=== PATIENT | female | born 1945 | race African-American/Black ===

== ENCOUNTER 2018-08-09 06:56 | Inpatient (IN) | payer MEDICARE, OTHER ==
[2018-08-04 10:49] VITALS: BMI 42.7
[2018-08-09] MEDS ORDERED: ceFAZolin SODIUM 1 GM VIAL ONE ×2 (07:09→10:29)
[2018-08-09] MEDS ORDERED: VANCOMYCIN 1,000 MG VIAL (RESTRICTED TO ID ONLY) ONE (07:09)
[2018-08-09] MEDS ORDERED: GABAPENTIN 300 MG CAPSULE (FP) PO ONE (07:11)
[2018-08-09] MEDS ORDERED: CEFAZOLIN 2 GM in DEXTROSE 5%-WATER - 50 ML IVPB ONE (07:11)
[2018-08-09] MEDS ORDERED: oxyCODONE HCL 10 MG SUSTAINED ACTING TABLET PO ONE (07:11)
[2018-08-09] MEDS ORDERED: CELECOXIB 200 MG CAPSULE PO ONE (07:11)
[2018-08-09] MEDS ORDERED: TRANEXAMIC ACID 1000 MG/10 ML VIAL IVPUSH ONE (07:11)
--- NOTE | 2018-08-09 07:58 | HP ---
[facility] - Chief Complaint Chief Complaint: right knee pain - Past Medical History Allergies/Adverse Reactions: Allergies Allergy/AdvReac Type Severity Reaction Status Date / Time No Known Allergies Allergy Verified 07/26/18 09:44 - Current Medications Current Medications: Home Medications Medication Instructions Recorded Albuterol 0.083% Nebulizer Shirley 1 amp NEB ASDIR PRN 08/04/18 [Ventolin 0.083% Nebulizer Soln -] Albuterol Sulfate [Albuterol 1 puff IH ASDIR PRN 08/04/18 Sulfate Hfa] Budesonide/Formeterol Fumarate 1 inh PO DAILY PRN 08/04/18 [SYMBICORT 160/4.5mcg -] Ezetimibe 10 mg PO DAILY 08/04/18 Losartan Potassium 100 mg PO DAILY 08/04/18 Naloxegol Oxalate [Movantik] 12.5 mg PO DAILY 08/04/18 Oxycodone HCl/Acetaminophen 1 each PO TID 08/04/18 [Endocet 10-325 mg Tablet] Pravastatin Sodium [Pravachol] 40 mg PO DAILY 08/04/18 Aspirin [Adult Aspirin] 243 mg PO DAILY 08/09/18 Naproxen Sodium [Aleve] 220 mg PO ASDIR PRN 08/09/18 Satellite Physical Exam - Physical Examination Vital Signs: Vital Signs Period Temp Pulse Resp BP Sys/Baker Pulse Ox Last 24 Hr 97.5 F 82 18 148/96 General Appearance: Well Nourished, Well Developed, Alert & Oriented x3 ENT: Clear Lung: Normal air movement Heart: Regular rate & rhythm Extremities: Other (right knee- +swelling, + ttp, decr rom, nvi xrays show grade tricompartmental djd) Neurological: Intact, Alert, Oriented Satellite Impression/Plan - Impression/Plan Impression: right knee djd Operative Procedure: right victroino tkr Date to be Performed: 08/09/18
[2018-08-09] MEDS ORDERED: BUPIVACAINE LIPOSOME/PF (EXPAREL) 266 MG/20 ML VIAL ONE (08:37)
[2018-08-09] MEDS ORDERED: MIDAZOLAM HCL 2 MG/2 ML SINGLE DOSE VIAL ONE (08:37)
[2018-08-09] MEDS ORDERED: SODIUM CHLORIDE 0.9% P/F 10 ML VIAL IJ ONE (08:38)
[2018-08-09] MEDS ORDERED: PROPOFOL 20 ML ONE (09:00)
[2018-08-09] MEDS ORDERED: BUPIVACAINE HCL/PF 0.5% (5MG/ML) 10 ML VIAL ONE (09:03)
[2018-08-09] MEDS ORDERED: PATIENT'S OWN MEDICATION (NON-FORMULARY) (Losartan Potassium [Losartan Potassium] 100 MG) PO SCH (10:00)
[2018-08-09] MEDS ORDERED: ALBUTEROL SO4 8 GM HFA INHALER IH PRN (10:00)
[2018-08-09] MEDS ORDERED: PATIENT'S OWN MEDICATION (NON-FORMULARY) (Pravastatin Sodium [Pravachol] 40 MG) PO SCH (10:00)
[2018-08-09] MEDS ORDERED: ALBUTEROL SO4 0.083% IH SOL 2.5 MG/3 ML VIAL.NEB. NEB PRN (10:00)
[2018-08-09] MEDS ORDERED: MAGNESIUM HYDROX 2400MG/30ML ORAL SUSPENSION 30 ML CUP PO PRN (10:02)
[2018-08-09] MEDS ORDERED: MAG HYDROX/AL HYDROX/SIMETH 30 ML UNIT-DOSE CUP PO PRN (10:02)
[2018-08-09] MEDS ORDERED: ONDANSETRON 4 MG/2 ML VIAL IVPUSH PRN (10:02)
[2018-08-09] MEDS ORDERED: LACTATED RINGERS SOLUTION 1,000 ML IV SCH (10:15)
[2018-08-09] MEDS ORDERED: ROCURONIUM BROMIDE 50 MG/5 ML VIAL ONE (10:16)
[2018-08-09] MEDS ORDERED: LIDOCAINE HCL/PF 2% SDV 5ML VIAL ONE (10:19)
[2018-08-09] MEDS ORDERED: LABETALOL HCL 5 MG/1 ML (100MG/20 ML VIAL) ONE (10:55)
[2018-08-09] MEDS ORDERED: VANCOMYCIN 1,000 MG VIAL (RESTRICTED TO ID ONLY) IVPB ONE (11:49)
[2018-08-09] MEDS ORDERED: GLYCOPYRROLATE 0.2 MG/1 ML VIAL ONE (11:58)
[2018-08-09] MEDS ORDERED: NEOSTIGMINE METHYLSULFATE 0.5 MG/ML - 10 ML MDV ONE (11:58)
--- NOTE | 2018-08-09 12:23 | OP ---
Operative Note - Note: Operative Date: 08/09/18 (rashaun) Pre-Operative Diagnosis: right knee djd Operation: right victorino tkr Post-Operative Diagnosis: Same as Pre-op Surgeon: Tirso Flores [employer] Operator: Dario Aguilar Anesthesiologist/INSURANCE HEALTHCARE CONSULTANT: Jasper Prater Anesthesia: General, Local Specimens Removed: bone fragments Estimated Blood Loss (mls): 200 Operative Report Dictated: Yes
[2018-08-09] MEDS ORDERED: oxyCODONE HCL 5 MG TABLET PO PRN (12:28)
[2018-08-09] MEDS ORDERED: ONDANSETRON 4 MG/2 ML VIAL ONE (13:04)
[2018-08-09] MEDS: ACETAMINOPHEN 325 MG TABLET (FP) PO SCH ×2 (13:20→21:28)
[2018-08-09] MEDS ORDERED: oxyCODONE HCL 5 MG TABLET ONE (13:35)
[2018-08-09] MEDS: CEFAZOLIN 2 GM/D5W 2 GM/50 ML ML IVPB SCH (17:56)
[2018-08-09] MEDS: oxyCODONE HCL 5 MG TABLET PO PRN (19:06)
--- NOTE | 2018-08-09 19:12 | SPEC ---
DATE OF OPERATION: 08/09/2018 PREOPERATIVE DIAGNOSIS: Degenerative joint disease, right knee. POSTOPERATIVE DIAGNOSIS: Degenerative joint disease, right knee. PROCEDURE: Right total knee replacement with robotic-assisted navigation (Makoplasty). SURGICAL ATTENDING: Tirso Flores M.D. FAST FOOD SERVER: Nabil Banks ANESTHESIA: Regional and attempted spinal, but conversion to general. CLOSURE: A Triathlon cemented knee system with a 3 femur, 4 tibia, 9 TS polyethylene, a 32 patella, number 1 Vicryl fascia, 0 and 2-0 subcutaneous, 3-0 Monocryl subcuticular with skin glue for skin, 4-0 undyed Vicryl for pin sites. ESTIMATED BLOOD LOSS: Approximately 100 mL. COMPLICATIONS: None. CONDITION: To recovery room in stable condition. DESCRIPTION OF OPERATIVE PROCEDURE: Patient was taken to the operating room on August 09, 2018. Regional and general anesthesia was administered by the anesthesiologist. IV Kefzol and TXA were administered by the anesthesiologist. Well-padded pneumatic tourniquet was placed on the proximal thigh. The right lower extremity was prepped and draped in the usual sterile fashion. The leg was exsanguinated with an Esmarch bandage, and tourniquet was inflated to 275 mmHg. A 12 to 15-cm longitudinal midline incision was incised while centered over the patella. The dissection was carried down to the level of the extensor mechanism with sufficient flaps made to adequately perform the procedure. A medial parapatellar arthrotomy was then performed. We made a cuff of tissue on the patella for later closure. The patella was inverted, the knee was flexed up. The fat pad was excised. The subperiosteal dissection was on the anteromedial proximal tibia around towards the direction of the MCL. The ACL and the PCL were transected and debrided. The meniscal remnants of the medial and lateral meniscus were debrided and removed. This allowed the knee to be able to "be brought forward." The checkpoints were malleted into the tibia and into the femur. Two threaded pins were drilled anteroposteriorly proximal to the knee through the previous incision, through the anterior cortex, then just engaging the posterior cortex. To these pins was assembled the femoral navigation array. One handbreadth below the tibial tubercle, 2 stab incisions were used to drill 2 threaded pins in parallel fashion into the tibia, again through the anterior cortex and just engaging the posterior cortex. To these pins was fastened the tibial arrays. The knee was then registered with the navigation device with center of rotation of the hip, medial and lateral malleoli, both checkpoints, and multiple points on both the femur and the tibia to ensure excellent registration. The navigation device was directed off the "top of the bubbles" on both the femur and the tibia. The navigation passed within less than 0.5 mm to plan. The knee was then thoroughly inspected to remove all osteophytes both medially, laterally, and on the femur and the tibia, and whatever osteophytes were available for dissection. The knee was then taken to extension and to flexion, and stressed in both varus and valgus to assess flexion gaps. The virtual position of the components on the navigation device were then manipulated to optimize the position and to ensure equal gaps in both flexion and extension, and both medially and laterally. The robot was then brought into the field and was registered. The cuts were then made both on the femur and on the tibia as to plan. All osteophytes posteriorly were then removed as well. The gaps were then measured again in flexion and extension to be equal in both flexion and extension and medial and laterally. The femoral notch was then made, as we were doing a posterior stabilizing component, with the appropriate sized box. Trial reduction of the femur achieved excellent [id number] fit. A tibial baseplate of appropriate polyethylene thickness was "floated in the knee." It was ensured to be in the excellent position by navigation devices and was pinned in place. The knee was taken through a range of motion, and found to have excellent stability throughout flexion and extension. The patella was calibrated for thickness and osteotomized down to the appropriate level. The appropriate lollipop was used to drill the lug holes in the patella and the trial button was applied. The knee was taken through a range of motion and found to have excellent tracking of the patella, and patella from full extension to full flexion. Trial components were removed, the keel was punched and drilled, and a sclerotic bone on the tibia was drilled to help with cement interdigitation. The knee was thoroughly irrigated with the pulse antibiotic bodily injury adjuster. The real components were then cemented in using monitored arrangement cement techniques with antibiotic cement, and pressurization and extension. After the cement was hardened, the knee was thoroughly inspected to remove any extra cement. The real polyethylene component was then clipped into place. Range of motion, stability, and tracking were as described earlier. The checkpoints and the pins were removed. The knee was thoroughly irrigated with antibiotic irrigation. Vancomycin powder was placed into the knee for antibiotic prophylaxis. The medial parapatellar arthrotomy was then closed using number 1 Vicryl interrupted suture. After closure of the deep layer, the knee was taken through a range of motion, and found to have excellent stability of the patella with no dislocation and no undue tension on the repair. The subcutaneous was pulse antibiotic irrigated, and was then closed with 2-0 Vicryl, 3-0 Monocryl subcuticular with the skin glue for the skin. The distal tibial pin site was irrigated thoroughly as well and then closed with 4-0 undyed Vicryl. A sterile Aquacel dressing was applied, followed by a Thibodeaux dressing. Tourniquet was deflated. Total tourniquet time was approximately 75 minutes. No complications. Patient was awakened from anesthesia and transferred to recovery room in stable condition. Postoperative x-rays revealed excellent position of the components. Efrain [id number]
[2018-08-09] MEDS: SENNOSIDES/DOCUSATE COMBO (SENNA PLUS) TABLET (UD) PO SCH (21:27)
[2018-08-09] MEDS: GABAPENTIN 300 MG CAPSULE (FP) PO SCH (21:27)
[2018-08-09] MEDS: ATORVASTATIN CA 10 MG TABLET (FP) PO SCH (21:28)
[2018-08-09] MEDS: oxyCODONE HCL 10 MG SUSTAINED ACTING TABLET PO SCH (21:28)
[2018-08-10] MEDS: CEFAZOLIN 2 GM/D5W 2 GM/50 ML ML IVPB SCH (01:10)
[2018-08-10] MEDS: ACETAMINOPHEN 325 MG TABLET (FP) PO SCH ×5 (03:25→21:28)
[2018-08-10] MEDS: oxyCODONE HCL 5 MG TABLET PO PRN (03:25)
[2018-08-10 08:07] LABS: HEMOGLOBIN 11.4 GM/dl (10.7-15.3); MCH 28.9 pg (25.7-33.7); MCHC 33.5 g/dl (32.0-36.0); MEAN CELL VOLUME 86.5 fl (80-96); MEAN PLT VOLUME 8.6 fl (7.5-11.1); PLATELET COUNT 232 K/MM3 (134-434); RBC 3.93 M/mm3 (3.60-5.2); RDW 13.6 % (11.6-15.6); WHITE BLOOD COUNT 11.4 K/mm3 (4.0-10.8)
[2018-08-10] MEDS: ASPIRIN 325 MG TABLET PO SCH (08:15)
[2018-08-10] MEDS: EZETIMIBE 10 MG TABLET (FP) PO SCH ×2 (08:17→09:24)
--- NOTE | 2018-08-10 08:29 | PN ---
Progress Note (short form) - Note Progress Note: Ortho Pt seen and examined s/p right victorino tkr pod #1 Selected Entries 08/10/18 06:00 Temperature 98.4 F Pulse Rate 87 Respiratory 18 Rate Blood Pressure 100/50 L Laboratory Tests 08/10/18 07:01 WBC Pending Hgb Pending Hct Pending Plt Count Pending dressing c/d/i, calf soft, nt rom 0-40, nvi a/p PT dvt ppx pain control d/c home tomorrow if stable
[2018-08-10] MEDS: oxyCODONE HCL 10 MG SUSTAINED ACTING TABLET PO SCH ×2 (09:24→21:30)
[2018-08-10] MEDS: LOSARTAN POTASSIUM 50 MG TABLET (FP) PO SCH (09:25)
[2018-08-10] MEDS: PANTOPRAZOLE 40 MG TABLET (FP) PO SCH (09:25)
[2018-08-10] MEDS: SENNOSIDES/DOCUSATE COMBO (SENNA PLUS) TABLET (UD) PO SCH ×2 (09:25→21:29)
[2018-08-10] MEDS: MULTIVITAMINS (DAILY MVI) TABLET (FP) PO SCH (09:25)
[2018-08-10] MEDS: GABAPENTIN 300 MG CAPSULE (FP) PO SCH ×2 (09:25→21:29)
[2018-08-10] MEDS ORDERED: PT OWN MED DRAWER 7, Y5N ONE ×2 (21:04→21:49)
[2018-08-10] MEDS: ATORVASTATIN CA 10 MG TABLET (FP) PO SCH (21:29)
[2018-08-10] MEDS: BUDESONIDE/FORMETEROL FUMARATE 160/4.5 mcg INHALER IH SCH (21:30)
[2018-08-11] MEDS: ACETAMINOPHEN 325 MG TABLET (FP) PO SCH ×2 (03:45→09:53)
[2018-08-11] MEDS: oxyCODONE HCL 5 MG TABLET PO PRN (05:04)
[2018-08-11] MEDS: ASPIRIN 325 MG TABLET PO SCH (08:20)
--- NOTE | 2018-08-11 08:28 | PN ---
Progress Note (short form) - Note Progress Note: Ortho Pt seen and examined s/p right victorino tkr pod #2 Selected Entries 08/11/18 06:47 Temperature 98.3 F Pulse Rate 64 Respiratory 18 Rate Blood Pressure 141/83 Laboratory Tests 08/10/18 07:01 WBC 11.4 H Hgb 11.4 Hct 34.0 Plt Count 232 dressing c/d/i, calf soft, nt rom 0-40, nvi a/p PT dvt ppx pain control d/c planning to rehab
[2018-08-11 08:40] LABS: HEMATOCRIT 31.3 % (32.4-45.2); HEMOGLOBIN 10.4 GM/dl (10.7-15.3); MCH 28.9 pg (25.7-33.7); MCHC 33.4 g/dl (32.0-36.0); MEAN CELL VOLUME 86.4 fl (80-96); MEAN PLT VOLUME 8.9 fl (7.5-11.1); PLATELET COUNT 184 K/MM3 (134-434); RBC 3.62 M/mm3 (3.60-5.2); RDW 13.4 % (11.6-15.6); WHITE BLOOD COUNT 13.9 K/mm3 (4.0-10.8)
[2018-08-11] MEDS ORDERED: PT OWN MED DRAWER 7, Y5N ONE (09:18)
[2018-08-11 09:52] VITALS: BP 123/58; PULSE 94; TEMP 98.2
[2018-08-11] MEDS: SENNOSIDES/DOCUSATE COMBO (SENNA PLUS) TABLET (UD) PO SCH (09:53)
[2018-08-11] MEDS: LOSARTAN POTASSIUM 50 MG TABLET (FP) PO SCH (09:53)
[2018-08-11] MEDS: EZETIMIBE 10 MG TABLET (FP) PO SCH (09:53)
[2018-08-11] MEDS: PANTOPRAZOLE 40 MG TABLET (FP) PO SCH (09:55)
[2018-08-11] MEDS: MULTIVITAMINS (DAILY MVI) TABLET (FP) PO SCH (09:55)
[2018-08-11] MEDS: oxyCODONE HCL 10 MG SUSTAINED ACTING TABLET PO SCH (09:55)
[2018-08-11] MEDS: GABAPENTIN 300 MG CAPSULE (FP) PO SCH (09:55)
[2018-08-11] MEDS: BUDESONIDE/FORMETEROL FUMARATE 160/4.5 mcg INHALER IH SCH (09:58)
--- NOTE | 2018-08-11 12:06 | DS ---
Physical Examination Vital Signs: Vital Signs Temperature 98.2 F 08/11/18 09:51 Pulse Rate 94 H 08/11/18 09:51 Respiratory Rate 18 08/11/18 09:51 Blood Pressure 123/58 L 08/11/18 09:51 O2 Sat by Pulse Oximetry (%) 97 08/11/18 06:47 Labs: CBC, BMP 08/11/18 07:15 Discharge Summary Reason For Visit: OSTEOARTHRITIS Procedures: Principal: right tkr Hospital Course: admitted for elective right victorino tkr, uneventful post-op, stable for d/c Condition: Good - Instructions Diet, Activity, Other Instructions: Post-op Instructions-Total Knee Replacement Call the office for a follow-up appointment in 1 week - [phone] Aspirin 325mg daily for 6 weeks. Pain medication was sent into your pharmacy. Apply Graduated Compression Stockings (TEDs) to both lower extremities- remove daily for hygiene ONLY Apply Sequential Compression Device (SCDs) to both Lower extremities remove for PT and hygiene ONLY Apply cold packs to affected area for 15 minutes every 2 hours. Physical Therapist will come to your home for the first 5 days. You will be set up with outpatient PT at your first post-operative visit. Patient may ambulate as tolerated-encourage self care (at least every 2-3 hours while awake) with walker or cane Maintain Aquacel (waterproof) dressing to operative wound (will be removed by surgeon at first office visit) Shower with Aquacel dressing in place-if Aquacel integrity compromised, remove and apply dry sterile dressing and notify Orthopedist. DO NOT SHOWER unless Orthopedists approves without Aquacel dressing CONTACT THE OFFICE FOR ANY CHANGE IN YOUR CONDITION (for example-fever greater than 102 degrees, excessive bleeding from operative site, purulent drainage, severe swelling or pain) GO TO THE EMERGENCY ROOM IF THERE IS A MEDICAL EMERGENCY Knee Precautions: * Keep a rolled towel under affected heel while in bed or chair (to keep knee in extension) * Keep affected leg elevated except during mealtimes * DO NOT PLACE PILLOW UNDER AFFECTED KNEE * If you have any questions, please do not hesitate to call the office - . Referrals: Tirso Flores MD [Staff Physician] - Disposition: INTERMEDIATE FACILITY - Home Medications Comprehensive Discharge Medication List: Ambulatory Orders Albuterol 0.083% Nebulizer Shirley [Ventolin 0.083% Nebulizer Soln -] 1 amp NEB ASDIR PRN 08/04/18 Albuterol Sulfate [Albuterol Sulfate Hfa] 1 puff IH ASDIR PRN 08/04/18 Budesonide/Formeterol Fumarate [SYMBICORT 160/4.5mcg -] 1 inh PO DAILY PRN 08/04 Ezetimibe 10 mg PO DAILY 08/04/18 Losartan Potassium 100 mg PO DAILY 08/04/18 Naloxegol Oxalate [Movantik] 12.5 mg PO DAILY 08/04/18 Oxycodone HCl/Acetaminophen [Endocet 10-325 mg Tablet] 1 each PO TID 08/04/18 Pravastatin Sodium [Pravachol] 40 mg PO DAILY 08/04/18 Aspirin [ASA -] 325 mg PO DAILY@0800 tablet 08/09/18 Naproxen Sodium [Aleve] 220 mg PO ASDIR PRN 08/09/18
--- NOTE | 2018-08-11 17:10 | PATH ---
Surgical Pathology Report Patient Name: KANIKA MILIAN Med. Rec. #: [id number] /Age/Gender: 1945 (Age: 72) / F Account: [id number] Location: [facility] MED-SURG Taken: 08/09/2018 Received: 08/09/2018 Reported: 08/11/2018 Physicians: Tirso Flores M.D. Specimen(s) Received BONE, RIGHT KNEE Clinical History Osteoarthritis right knee Final Diagnosis BONE, KNEE, RIGHT, TOTAL KNEE REPLACEMENT: BONE WITH DEGENERATIVE JOINT DISEASE, FIBROADIPOSE TISSUE, AND SYNOVIUM. Electronically Signed Latia Oliver M.D. Gross Description Received in formalin labeled "bone right knee," is a 13.5 x 10.0 x 2.0 cm aggregate of multiple benton-yellow, irregular portions of bone and soft tissue, consistent with knee bones. The articular surfaces are benton-brown and diffusely granular. There is a 2.0 cm in greatest dimension area of eburnation present. The underlying trabecular bone is yellow and hard. Oven Loader sections are submitted in one cassette, following decalcification. /08/10/2018 [facility]08/10/2018
== END 2018-08-11 13:00 | DRG 470 ==
LOC: FM/S 06:56
PROVIDERS: ADMIT Orthopaedic Surgery; ATTEND Orthopaedic Surgery
PROC: 8E0Y0CZ Robotic Assisted Procedure of Lower Extremity, Open Approach (ICD-10-PCS; 2018-08-09)
PROC: 0SRC0J9 Replacement of Right Knee Joint with Synthetic Substitute, Cemented, Open Approach (ICD-10-PCS; principal; 2018-08-09 09:30)
DX: M17.11 Unilateral primary osteoarthritis, right knee (principal)
CPT/HCPCS: 36415; 73560-TC-RT-FY; 85027; 88304-TC; 88311-TC; 94760; 97116-GP; 97163-GP

== ENCOUNTER 2018-10-13 12:14 | Inpatient (IN) | payer MEDICARE, OTHER ==
[2018-10-13 12:43] VITALS: BMI 40.3
[2018-10-13 13:41] LABS: BASO % 1.1 % (0-2.0); EOS % 1.7 % (0-4.5); HEMOGLOBIN 13.9 GM/dL (10.7-15.3); LYMPH % 30.5 % (8-40); MCH 27.3 pg (25.7-33.7); MCHC 32.3 g/dl (32.0-36.0); MEAN CELL VOLUME 84.7 fl (80-96); MEAN PLT VOLUME 7.3 fl (7.5-11.1); MONO % 7.3 % (3.8-10.2); NEUT % 59.4 % (42.8-82.8); PLATELET COUNT 298 K/MM3 (134-434); RBC 5.08 M/mm3 (3.60-5.2); RDW 14.8 % (11.6-15.6)
--- NOTE | 2018-10-13 13:47 | PDOC ---
History of Present Illness - General Chief Complaint: Palpitations Stated Complaint: Respiratory Time Seen by Provider: 10/13/18 12:46 History Source: Patient Exam Limitations: No Limitations - History of Present Illness Initial Comments: 10/13/18 13:38 Patient is a 72F with history of back pain, knee replacement on 08/09 (d/c 09/20), asthma, htn, hld, prior heart cath with unknown result at outside hospital here today with intermittent chest pain for the past two weeks. The patient states that she has episodes of chest pain, shortness of breath and left arm numbness that last for about 20-40 minutes. Symptoms improve with rest, worsen with exertion. Denies fevers, chills. Denies vomiting endorses nausea with these episodes. Patient is currently pain free. Patient presented to language arts teacher. Stress test showed perfusion defect in July in inferior wall. No history of blood clots, no unilateral leg pain. PCP: Ana Cards: Sivakumar Past History - Past Medical History Allergies/Adverse Reactions: Allergies Allergy/AdvReac Type Severity Reaction Status Date / Time No Known Allergies Allergy Verified 10/13/18 12:43 Home Medications: Ambulatory Orders Albuterol 0.083% Nebulizer Shirley [Ventolin 0.083% Nebulizer Soln -] 1 amp NEB ASDIR PRN 08/04/18 Albuterol Sulfate [Albuterol Sulfate Hfa] 1 puff IH ASDIR PRN 08/04/18 Budesonide/Formeterol Fumarate [SYMBICORT 160/4.5mcg -] 1 inh PO DAILY PRN 08/04 Ezetimibe 10 mg PO DAILY 08/04/18 Losartan Potassium 100 mg PO DAILY 08/04/18 Naloxegol Oxalate [Movantik] 12.5 mg PO DAILY 08/04/18 Oxycodone HCl/Acetaminophen [Endocet 10-325 mg Tablet] 1 each PO TID 08/04/18 Pravastatin Sodium [Pravachol] 40 mg PO DAILY 08/04/18 Aspirin [ASA -] 325 mg PO DAILY@0800 tablet 08/09/18 Naproxen Sodium [Aleve] 220 mg PO ASDIR PRN 08/09/18 Anemia: No Asthma: Yes Cancer: No Cardiac Disorders: No CVA: No COPD: No CHF: No Dementia: No Diabetes: No GI Disorders: No Disorders: Yes (incontinence) HTN: Yes Hypercholesterolemia: Yes Liver Disease: No Seizures: No Thyroid Disease: No Other medical history: stress test 2018 - Surgical History Abdominal Surgery: No Appendectomy: No Cardiac Surgery: No Cholecystectomy: No Lung Surgery: No Neurologic Surgery: No Orthopedic Surgery: Yes (L knee arthroscopy) - Suicide/Smoking/Psychosocial Hx Smoking History: Never smoked Have you smoked in the past 12 months: No Information on smoking cessation initiated: No Hx Alcohol Use: No Drug/Substance Use Hx: No Substance Use Type: Alcohol Review of Systems - Review of Systems Able to Perform ROS?: Yes Comments:: 10/13/18 13:47 GENERAL/CONSTITUTIONAL: No fever or chills. No weakness. HEAD, EYES, EARS, NOSE AND THROAT: No change in vision. No ear pain or discharge. No sore throat. CARDIOVASCULAR: +chest pain +shortness of breath RESPIRATORY: No cough, wheezing, or hemoptysis. GASTROINTESTINAL: +nausea, no vomiting, diarrhea or constipation. GENITOURINARY: No dysuria, frequency, or change in urination. MUSCULOSKELETAL: No joint or muscle swelling or pain. No neck or back pain. SKIN: No rash NEUROLOGIC: No headache, vertigo, loss of consciousness, or change in strength/ sensation. HEMATOLOGIC/LYMPHATIC: No anemia, easy bleeding, or history of blood clots. ALLERGIC/IMMUNOLOGIC: No hives or skin allergy. *Physical Exam - Vital Signs Last Vital Signs Temp Pulse Resp BP Pulse Ox 97.7 F 98 H 20 144/75 100 10/13/18 12:29 10/13/18 12:29 10/13/18 12:29 10/13/18 12:29 10/13/18 12:29 - Physical Exam Comments: 10/13/18 13:48 GENERAL: Awake, alert, and fully oriented, in no acute distress HEAD: No signs of trauma, normocephalic, atraumatic EYES: PERRLA, EOMI, sclera anicteric, conjunctiva clear ENT: Auricles normal inspection, hearing grossly normal, nares patent, oropharynx clear without exudates. Moist mucosa NECK: Normal ROM, supple, no lymphadenopathy, JVD, or masses LUNGS: No distress, speaks full sentences, clear to auscultation bilaterally HEART: Regular rate and rhythm, normal S1 and S2, no murmurs, rubs or gallops, peripheral pulses normal and equal bilaterally. ABDOMEN: Soft, nontender, normoactive bowel sounds. No guarding, no rebound. No masses EXTREMITIES: Normal inspection, Normal range of motion, no edema. No clubbing or cyanosis. NEUROLOGICAL: Cranial nerves II through XII grossly intact. Normal speech, no focal sensorimotor deficits, NIHSS 0 SKIN: Warm, Dry, normal turgor, no rashes or lesions noted. ED Treatment Course - LABORATORY CBC & Chemistry Diagram: 10/13/18 13:22 10/13/18 13:22 - RADIOLOGY Radiology Studies Ordered: Category Date Time Status HEAD CT WITHOUT CONTRAST [CT] Stat CT Scan 10/13/18 13:00 Ordered CHEST X-RAY PORTABLE* [RAD] Stat Radiology 10/13/18 13:00 Taken Medical Decision Making - Medical Decision Making 10/13/18 13:50 Patient is 72F with history of asthma, recent knee surgery, htn, hld here today with chest pain, arm numbness, shortness of breath. Vitals normal and stable. DDx includes, but is not limited to: ACS, arrhythmia, PE (low risk), TIA. Will workup with cbc, cmp, d-dimer, trop, pt/inr, cxr, head ct. Likely admit. 10/13/18 15:03 EKG shows NSR with rate of 94. No st elevations/depressions. Left axis. Normal intervals. No significant t wave abnormalities. Trop 0.25, d-dimer elevated, kidney function normal, CTA ordered. Aspirin given. 10/13/18 19:03 Trop 3.2 Patient reassessed. Patient denies chest pain, stating that "she has something in her chest". States that she has "a little" shortness of breath. Given lovenox , atorvastatin. Patient's language arts teacher Dr Sivakumar morris, will go to on-call cardiology. Cardiology paged. EKG shows NSR with rate of 94. T wave inversions in inferior and lateral leads. 10/13/18 19:14 Case d/w Dr Charles. Will load with plavix 600mg. Repeat trop in 4-5 hours after 2nd trop. Likely transfer in morning, but will admit for now. Case d/w Dr Victoria, accepted to [facility]. *DC/Admit/Observation/Transfer Diagnosis at time of Disposition: NSTEMI (non-ST elevated myocardial infarction) - Discharge Dispostion Condition at time of disposition: Stable Decision to Admit order: Yes - Referrals - Patient Instructions - Post Discharge Activity
[2018-10-13 14:03] LABS: INR 1.12 (0.83-1.09); PROTHROMBIN TIME (PATIENT) 13.2 SEC (9.7-13.0)
[2018-10-13 14:17] LABS: ALBUMIN 3.5 g/dl (3.4-5.0); BILIRUBIN,TOTAL 0.6 mg/dL (0.2-1); CALCIUM 9.5 mg/dL (8.5-10.1); CREATININE 0.6 mg/dL (0.55-1.3); MAGNESIUM 2.2 mg/dL (1.8-2.4); POTASSIUM 4.9 mmol/L (3.5-5.1); TOT PROT 7.6 g/dl (6.4-8.2)
[2018-10-13] MEDS ORDERED: ASPIRIN 81 MG CHEWABLE TABLETS PO ONE (14:36)
--- NOTE | 2018-10-13 14:56 | PDOC ---
Documentation entered by Nettie Garcia SCRIBE, acting as scribe for Js Presley MD. Js Presley MD: This documentation has been prepared by the Jose beck Amanda, SCRIBE, under my direction and personally reviewed by me in its entirety. I confirm that the documentation accurately reflects all work, treatment, procedures, and medical decision making performed by me. Attending Attestation - Resident Resident Name: Francois Lambert - ED Attending Attestation I have performed the following: I have examined & evaluated the patient, The case was reviewed & discussed with the resident, I agree w/resident's findings & plan - HPI HPI: 10/13/18 14:14 Patient is a 72 year old female with a significant past medical history of back pain, knee replacement on 08/09, asthma, htn, hld, who presents to the ED with complaint of intermittent chest pain for the past two weeks with associated nausea and new onset of shortness of breath and left arm numbness about 20-40 minutes prior to ED arrival. Seen in Dr. Perez's office and referred to her culinary arts teacher, who performed an EKG and referred her directly to the ER. Sx free now. The patient denies fevers, chills, headache, palpitations. The patient denies dysuria, hematuria, urgency. Reports intermittent swelling/discomfort to R knee but no other complaints. PCP: Ana Cards: Sivakumar - Physicial Exam PE: 10/13/18 14:16 alert, obese, nad conversant and smiling heart regular, lungs clear abd soft/nt R knee with small effusion, no warmth/erythema. FROM, nvi distally - Medical Decision Making 10/13/18 14:53 72-year-old female with history of CAD with recent knee surgery cardiac catheterization in the past, recent knee surgery 6 weeks ago with unprompted episodes of chest pressure radiating to left arm with lightheadedness and palpitations and nausea. Sent to ED by her culinary arts teacher. Presentation could be concerning for ACS, PE is on the differential, rule out infectious etiology. Labs, urinalysis EKG, chest x-ray D-dimer positive, will check CTA chest Will need admission Heart Score/ECG Review #1 ECG reviewed & interpreted by me at: 12:34 General ECG Interpretation: Sinus Rhythm, Normal Rate (94), Normal Intervals ( qtc 482), No acute ischemic changes
[2018-10-13] MEDS ORDERED: ATORVASTATIN CA 80 MG TABLET (FP) PO ONE ×2 (18:57→19:23)
[2018-10-13] MEDS ORDERED: ENOXAPARIN NA (PORCINE) 120 MG/0.8 ML DISP.SYRIN SQ SCH (19:00)
[2018-10-13] MEDS ORDERED: ENOXAPARIN NA (PORCINE) 120 MG/0.8 ML DISP.SYRIN SQ ONE (19:00)
--- NOTE | 2018-10-13 19:03 | PDOC ---
*Physical Exam - Vital Signs Last Vital Signs Temp Pulse Resp BP Pulse Ox 97.7 F 98 H 20 144/75 100 10/13/18 12:29 10/13/18 12:29 10/13/18 12:29 10/13/18 12:29 10/13/18 12:29 - Physical Exam Comments: 10/13/18 19:03 aaox3, nad heart: +s1s2 reg lungs: cta b/l abd: soft, nt/nd +bs ext: s/p knee replacement on R Heart Score/ECG Review - ECG Intrepretation Comment:: 10/13/18 19:02 sinus at 97, T wave inversions inferior-lateral which are new compared to prior ekg, LAFB abnl ekg ED Treatment Course - LABORATORY CBC & Chemistry Diagram: 10/13/18 13:22 10/13/18 13:22 - ADDITIONAL ORDERS Additional order review: Laboratory Results 10/13/18 10/13/18 10/13/18 16:50 13:22 13:22 PT with INR INR D-Dimer 1386 H Sodium 139 Potassium 4.9 Chloride 106 Carbon Dioxide 27 Anion Gap 5 L BUN 19 H Creatinine 0.6 Est GFR (CKD-EPI)AfAm 106.28 Est GFR (CKD-EPI)NonAf 91.70 Random Glucose 90 Calcium 9.5 Magnesium 2.2 Total Bilirubin 0.6 AST 16 ALT 13 Alkaline Phosphatase 65 Creatine Kinase 54 Troponin I 3.27 H* 0.25 H Total Protein 7.6 Albumin 3.5 10/13/18 13:22 PT with INR 13.20 H INR 1.12 H D-Dimer Sodium Potassium Chloride Carbon Dioxide Anion Gap BUN Creatinine Est GFR (CKD-EPI)AfAm Est GFR (CKD-EPI)NonAf Random Glucose Calcium Magnesium Total Bilirubin AST ALT Alkaline Phosphatase Creatine Kinase Troponin I Total Protein Albumin 10/13/18 13:22 RBC 5.08 MCV 84.7 MCHC 32.3 RDW 14.8 MPV 7.3 L Neutrophils % 59.4 Lymphocytes % 30.5 Monocytes % 7.3 Eosinophils % 1.7 Basophils % 1.1 - Medications Given in the ED: ED Medications Discontinued Medications Generic Name Dose Route Start Last Admin Trade Name Freq PRN Reason Stop Dose Admin Aspirin 162 mg 10/13/18 14:36 10/13/18 14:44 Asa - PO 10/13/18 14:37 162 mg ONCE ONE Administration Medical Decision Making - Medical Decision Making 10/13/18 19:32 a/p: 72yo female signed out pending repeat trop and CTA -pt s/p knee replacement -mildly elevated trop -asa given -repeat trop was >3 ekg shows new t wave inversions pt admits to discomfort in her chest, but denies pressure or acute pain -pt denies sob -no radiation -resident discussed the case with Dr. Shaver - recommends discussion with oncall cards resident discussed the case with Dr. Charles who requests plavix lipitor and lovenox already given resident discussed the case with Dr. Victoria who accepts pt service (covering for Dr. Slade Flynn) *DC/Admit/Observation/Transfer Diagnosis at time of Disposition: NSTEMI (non-ST elevated myocardial infarction) - Discharge Dispostion Condition at time of disposition: Guarded Decision to Admit order: Yes - Referrals - Patient Instructions - Post Discharge Activity
[2018-10-13] MEDS ORDERED: ENOXAPARIN NA (PORCINE) 80 MG/0.8 ML DISP.SYRIN SQ ONE ×2 (19:07→20:41)
[2018-10-13] MEDS ORDERED: ENOXAPARIN NA (PORCINE) 40 MG/0.4 ML DISP.SYRIN SQ ONE (19:07)
[2018-10-13] MEDS ORDERED: ATORVASTATIN CA 80 MG TABLET (FP) ONE (19:07)
[2018-10-13] MEDS ORDERED: CLOPIDOGREL BISULFATE 300 MG TABLET PO ONE (19:13)
[2018-10-13] MEDS ORDERED: SODIUM CHLORIDE 1,000 ML IV SCH (19:15)
--- NOTE | 2018-10-13 19:22 | HP ---
CHIEF COMPLAINT: chest pain PCP: Ana HISTORY OF PRESENT ILLNESS: 72yo morbidly obese woman w/ history of CAD, has been having intermittent chest pain for the past two weeks, shortly before presentation to hospital she developed substernal chest pain associated with shortness of breath with left arm numbness. Symptoms improve with rest, worsen with exertion. Stress test showed perfusion defect in July in inferior wall. Patient mentioned her left arm numbness has been present for several months following some trauma to her shoulder. She reported normal cardiac stress test this past july. ER course was notable for: (1) cta (2) asa (3) plavix Recent Travel: no PAST MEDICAL HISTORY: back pain, , asthma, htn, hld, prior heart cath PAST SURGICAL HISTORY: knee replacement on 08/09 (d/c 09/20) Social History: Smoking:no Alcohol: no Drugs: no Family History: Allergies No Known Allergies Allergy (Verified 10/13/18 12:43) HOME MEDICATIONS: Home Medications Medication Instructions Recorded Albuterol 0.083% Nebulizer Shirley 1 amp NEB ASDIR PRN 08/04/18 [Ventolin 0.083% Nebulizer Soln -] Albuterol Sulfate [Albuterol 1 puff IH ASDIR PRN 08/04/18 Sulfate Hfa] Budesonide/Formeterol Fumarate 1 inh PO DAILY PRN 08/04/18 [SYMBICORT 160/4.5mcg -] Ezetimibe 10 mg PO DAILY 08/04/18 Losartan Potassium 100 mg PO DAILY 08/04/18 Naloxegol Oxalate [Movantik] 12.5 mg PO DAILY 08/04/18 Oxycodone HCl/Acetaminophen 1 each PO TID 08/04/18 [Endocet 10-325 mg Tablet] Pravastatin Sodium [Pravachol] 40 mg PO DAILY 08/04/18 Aspirin [ASA -] 325 mg PO DAILY@0800 tablet 08/09/18 Naproxen Sodium [Aleve] 220 mg PO ASDIR PRN 08/09/18 REVIEW OF SYSTEMS CONSTITUTIONAL: Absent: fever, chills, diaphoresis, generalized weakness, malaise, loss of appetite, weight change HEENT: Absent: rhinorrhea, nasal congestion, throat pain, throat swelling, difficulty swallowing, mouth swelling, ear pain, eye pain, visual changes CARDIOVASCULAR: Absent: syncope, palpitations, irregular heart rate, lightheadedness, peripheral edema present - chest pain, RESPIRATORY: Absent: cough,orthopnea, wheezing, stridor, hemoptysis present- shortness of breath, dyspnea with exertion, GASTROINTESTINAL: Absent: abdominal pain, abdominal distension, nausea, vomiting, diarrhea, constipation, melena, hematochezia GENITOURINARY: Absent: dysuria, frequency, urgency, hesitancy, hematuria, flank pain, genital pain MUSCULOSKELETAL: Absent: myalgia, arthralgia, joint swelling, back pain, neck pain SKIN: Absent: rash, itching, pallor HEMATOLOGIC/IMMUNOLOGIC: Absent: easy bleeding, easy bruising, lymphadenopathy, frequent infections ENDOCRINE: Absent: unexplained weight gain, unexplained weight loss, heat intolerance, cold intolerance NEUROLOGIC: Absent: headache, focal weakness or paresthesias, dizziness, unsteady gait, seizure, mental status changes, bladder or bowel incontinence PSYCHIATRIC: Absent: anxiety, depression, suicidal or homicidal ideation, hallucinations. PHYSICAL EXAMINATION Vital Signs - 24 hr 10/13/18 12:29 Temperature 97.7 F Pulse Rate 98 H Respiratory 20 Rate Blood Pressure 144/75 O2 Sat by Pulse 100 Oximetry (%) GENERAL: Awake, alert, and fully oriented, in no acute distress, morbidly obese HEAD: Normal with no signs of trauma. EYES: Pupils equal, round and reactive to light, extraocular movements intact, sclera anicteric, conjunctiva clear. No lid lag. EARS, NOSE, THROAT: Ears normal, nares patent, oropharynx clear without exudates. Moist mucous membranes. NECK: Normal range of motion, supple without lymphadenopathy, JVD, or masses. LUNGS: Breath sounds equal, clear to auscultation bilaterally. No wheezes, and no crackles. No accessory muscle use. HEART: Regular rate and rhythm, normal S1 and S2 without murmur, rub or gallop. ABDOMEN: Soft, obese, nontender, not distended, normoactive bowel sounds, no guarding, no rebound, no masses. MUSCULOSKELETAL: Normal range of motion at all joints. No bony deformities or tenderness. No CVA tenderness. UPPER EXTREMITIES: 2+ pulses, warm, well-perfused. No cyanosis. No clubbing. No peripheral edema. LOWER EXTREMITIES: 2+ pulses, warm, well-perfused. No calf tenderness. No peripheral edema. NEUROLOGICAL: Cranial nerves II-XII intact. Normal speech. No focal weaknesses PSYCHIATRIC: Cooperative. Good eye contact. Appropriate mood and affect. SKIN: Warm, dry, normal turgor, no rashes or lesions noted, normal capillary refill. Laboratory Results - last 24 hr 10/13/18 10/13/18 10/13/18 13:22 13:22 13:22 WBC 9.0 RBC 5.08 Hgb 13.9 Hct 43.0 MCV 84.7 MCH 27.3 MCHC 32.3 RDW 14.8 Plt Count 298 MPV 7.3 L Absolute Neuts (auto) 5.3 Neutrophils % 59.4 Lymphocytes % 30.5 Monocytes % 7.3 Eosinophils % 1.7 Basophils % 1.1 Nucleated RBC % 0 PT with INR 13.20 H INR 1.12 H D-Dimer Sodium 139 Potassium 4.9 Chloride 106 Carbon Dioxide 27 Anion Gap 5 L BUN 19 H Creatinine 0.6 Est GFR (CKD-EPI)AfAm 106.28 Est GFR (CKD-EPI)NonAf 91.70 Random Glucose 90 Calcium 9.5 Magnesium 2.2 Total Bilirubin 0.6 AST 16 ALT 13 Alkaline Phosphatase 65 Creatine Kinase 54 Troponin I 0.25 H Total Protein 7.6 Albumin 3.5 10/13/18 10/13/18 13:22 16:50 WBC RBC Hgb Hct MCV MCH MCHC RDW Plt Count MPV Absolute Neuts (auto) Neutrophils % Lymphocytes % Monocytes % Eosinophils % Basophils % Nucleated RBC % PT with INR INR D-Dimer 1386 H Sodium Potassium Chloride Carbon Dioxide Anion Gap BUN Creatinine Est GFR (CKD-EPI)AfAm Est GFR (CKD-EPI)NonAf Random Glucose Calcium Magnesium Total Bilirubin AST ALT Alkaline Phosphatase Creatine Kinase Troponin I 3.27 H* Total Protein Albumin chest cta reviewed head CT reviewed cxr reviewed ekg reviewed ASSESSMENT/PLAN: #ACS - NSTEMI, symptoms resolved in ER, VS stable. CTA neg for PE. Cardiology called from ER- recommended medical management. -admit to telemetry -s/p loading dose plavix, asa, c/w daily maintenance doses -lovenox therapeutic dose 150mg sc q12hrs -metoprolol 50 stat, then bid -NGL SL prn if angina -supplemental oxygen via nasal cannula -high dose high intensity statin stat -echo -monitor VS closely -c/w losartan home dose -cardiology evaluation #Left upper extremity numbness- chronic, not associated with weakness. Head CT reviewed, no acute lesions. May be secondary to NSTEMI vs trauma to shoulder -consider EMG study to evaluate for neuropathy #DVT ppx - on therapeutic dose of lovenox Visit type - Emergency Visit Emergency Visit: Yes ED Registration Date: 10/13/18 Care time: The patient presented to the Emergency Department on the above date and was hospitalized for further evaluation of their emergent condition. - New Patient This patient is new to me today: Yes Date on this admission: 10/13/18 - Critical Care Critical Care patient: No
[2018-10-13] MEDS ORDERED: METOPROLOL TARTRATE 50 MG TABLET (FP) PO ONE (19:23)
[2018-10-13] MEDS ORDERED: NITROGLYCERIN SUBLINGUAL 1/150 0.4 MG TAB SL PRN (19:23)
[2018-10-13] MEDS ORDERED: CLOPIDOGREL BISULFATE 300 MG TABLET ONE (19:31)
--- NOTE | 2018-10-13 20:19 | CON.PULM ---
Consult Consult Specialty:: Pulmonary , critical care Referred by:: ED team Reason for Consultation:: NSTEMI , angina - History of Present Illness Chief Complaint: chest pain worsen with exersion - History Source History Provided By: Patient Limitations to Obtaining History: No Limitations - Alcohol/Substance Use Hx Alcohol Use: No - Smoking History Smoking history: Never smoked Have you smoked in the past 12 months: No Home Medications - Allergies Allergies/Adverse Reactions: Allergies Allergy/AdvReac Type Severity Reaction Status Date / Time No Known Allergies Allergy Verified 10/13/18 12:43 - Home Medications Home Medications: Ambulatory Orders Albuterol 0.083% Nebulizer Shirley [Ventolin 0.083% Nebulizer Soln -] 1 amp NEB ASDIR PRN 08/04/18 Albuterol Sulfate [Albuterol Sulfate Hfa] 1 puff IH ASDIR PRN 08/04/18 Budesonide/Formeterol Fumarate [SYMBICORT 160/4.5mcg -] 1 inh PO DAILY PRN 08/04 Ezetimibe 10 mg PO DAILY 08/04/18 Losartan Potassium 100 mg PO DAILY 08/04/18 Naloxegol Oxalate [Movantik] 12.5 mg PO DAILY 08/04/18 Oxycodone HCl/Acetaminophen [Endocet 10-325 mg Tablet] 1 each PO TID 08/04/18 Pravastatin Sodium [Pravachol] 40 mg PO DAILY 08/04/18 Aspirin [ASA -] 325 mg PO DAILY@0800 tablet 08/09/18 Naproxen Sodium [Aleve] 220 mg PO ASDIR PRN 08/09/18 Review of Systems - Review of Systems Constitutional: denies: Chills, Diaphoresis Cardiovascular: reports: Chest Pain, Shortness of Breath Respiratory: reports: SOB, SOB on Exertion Gastrointestinal: reports: No Symptoms Genitourinary: reports: No Symptoms Physical Exam Vital Sings: Vital Signs Temperature 97.3 F L 10/13/18 19:22 Pulse Rate 99 H 10/13/18 19:22 Respiratory Rate 24 H 10/13/18 19:22 Blood Pressure 127/73 10/13/18 19:22 O2 Sat by Pulse Oximetry (%) 97 10/13/18 19:22 Constitutional: Yes: Well Nourished, No Distress, Calm Eyes: Yes: Conjunctiva Clear HENT: Yes: Atraumatic, Normocephalic Neck: Yes: Supple Cardiovascular: Yes: Regular Rate and Rhythm Respiratory: Yes: CTA Bilaterally Gastrointestinal: Yes: Normal Bowel Sounds Renal/: No: CVA Tenderness - Left Edema: No Neurological: Yes: Alert, Oriented ...Motor Strength: WNL Psychiatric: Yes: Alert, Oriented Labs: CBC, [facility] 10/13/18 13:22 10/13/18 13:22 Imaging - Results Chest X-ray: Image Reviewed Cat Scan: Image Reviewed EKG: Image Reviewed Problem List - Problems (1) NSTEMI (non-ST elevated myocardial infarction) Code(s): I21.4 - NON-ST ELEVATION (NSTEMI) MYOCARDIAL INFARCTION Assessment/Plan CBC, [facility] 10/13/18 13:22 10/13/18 13:22 Home Medication List Medication Instructions Recorded Confirmed Type Albuterol 0.083% Nebulizer Shirley 1 amp NEB ASDIR PRN 08/04/18 10/13/18 History [Ventolin 0.083% Nebulizer Soln -] Albuterol Sulfate [Albuterol 1 puff IH ASDIR PRN 08/04/18 10/13/18 History Sulfate Hfa] Budesonide/Formeterol Fumarate 1 inh PO DAILY PRN 08/04/18 10/13/18 History [SYMBICORT 160/4.5mcg -] Ezetimibe 10 mg PO DAILY 08/04/18 10/13/18 History Losartan Potassium 100 mg PO DAILY 08/04/18 10/13/18 History Naloxegol Oxalate [Movantik] 12.5 mg PO DAILY 08/04/18 10/13/18 History Oxycodone HCl/Acetaminophen 1 each PO TID 08/04/18 10/13/18 History [Endocet 10-325 mg Tablet] Pravastatin Sodium [Pravachol] 40 mg PO DAILY 08/04/18 10/13/18 History Naproxen Sodium [Aleve] 220 mg PO ASDIR PRN 08/09/18 10/13/18 History Active Medications Generic Name Dose Route Start Last Admin Trade Name Freq PRN Reason Stop Dose Admin Albuterol Sulfate 1 amp 10/13/18 19:27 Ventolin 0.083% Nebulizer Soln - NEB ASDIR PRN ASTHMA Aspirin 81 mg 10/14/18 10:00 Ecotrin - PO DAILY DIA Atorvastatin Calcium 10 mg 10/14/18 22:00 Lipitor - PO HS DIA Budesonide/Formoterol Fumarate 1 puff 10/13/18 19:27 Symbicort 160/4.5mcg - IH DAILY PRN ASTHMA Clopidogrel Bisulfate 75 mg 10/14/18 10:00 Plavix - PO DAILY DIA Ezetimibe 10 mg 10/14/18 10:00 Zetia - PO DAILY DIA Enoxaparin Sodium 120 mg 10/14/18 08:00 Lovenox - SQ Q12H DIA Sodium Chloride 1,000 mls @ 75 mls/hr 10/13/18 19:15 Normal Saline - IV ASDIR DIA Losartan Potassium 100 mg 10/14/18 10:00 Cozaar - PO DAILY DIA Metoprolol Tartrate 50 mg 10/14/18 10:00 Lopressor - PO BID DIA Nitroglycerin 0.4 mg 10/13/18 19:23 Nitrostat - SL Q5M PRN FOR CHEST PAIN 72yo morbidly obese woman w/ history of CAD, has been having intermittent chest pain for the past two weeks, shortly before presentation to hospital she developed substernal chest pain associated with shortness of breath with left arm numbness. Symptoms improve with rest, worsen with exertion. Stress test showed perfusion defect in July in inferior wall. # NSTEMI , Angina chest pain * Hemodynamically stable * ASA 325 , Plavix and lovenox started in ED * COnsult GI * repeat EKG * Trend Trop * O2 to maintain o2 sat >90 % * Morphine as needed for pain * Atorvastatin 80 mg daily * pt, ptt, m cbc, cmp * tele monitor * no need for ICU monitor at this time * consult cardiology : might need cardiac cath in AM * BB * Echo in am * CTA negative for PE
[2018-10-14] MEDS ORDERED: morphine SULFATE 4 MG/ML VIAL IVPUSH ONE (04:32)
[2018-10-14 06:08] LABS: EOS % 2.9 % (0-4.5); HEMATOCRIT 41.8 % (32.4-45.2); HEMOGLOBIN 13.3 GM/dL (10.7-15.3); LYMPH % 31.1 % (8-40); MCH 27.1 pg (25.7-33.7); MCHC 31.9 g/dl (32.0-36.0); MEAN CELL VOLUME 84.9 fl (80-96); MEAN PLT VOLUME 7.6 fl (7.5-11.1); MONO % 8.3 % (3.8-10.2); NEUT % 56.7 % (42.8-82.8); PLATELET COUNT 290 K/MM3 (134-434); RBC 4.92 M/mm3 (3.60-5.2); RDW 14.8 % (11.6-15.6); WHITE BLOOD COUNT 7.2 K/mm3 (4.0-10.0)
[2018-10-14 06:44] VITALS: TEMP 98.4
[2018-10-14 06:46] LABS: CREATININE 0.5 mg/dL (0.55-1.3); POTASSIUM 4.2 mmol/L (3.5-5.1)
[2018-10-14] MEDS ORDERED: ENOXAPARIN NA (PORCINE) 120 MG/0.8 ML DISP.SYRIN SQ SCH (08:00)
[2018-10-14] MEDS ORDERED: ALBUTEROL SO4 0.083% IH SOL 2.5 MG/3 ML VIAL.NEB. NEB PRN (08:30)
--- NOTE | 2018-10-14 09:34 | CON.CARD ---
Consult Consult Specialty:: Cardiology Referred by:: Dr. Flynn Reason for Consultation:: NSTEMI - History of Present Illness Chief Complaint: chest pain History of Present Illness: 72F with PMH HTN, Hyperlipidemia presents to ER with episode of severe substernal chest tightness 2 weeks ago and ongoing JONES and episodes of SSCP radiating to left arm. 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 In ER noted to have rising TnI and diffuse T wave changes, dynamic ECG. Due to recent knee surgery had CTA which was negative for PE. Received ASA, Plavix Load, Lovenox. - History Source History Provided By: Patient - Past Medical History Cardio/Vascular: Yes: HTN, Hyperlipdemia Hepatobiliary: No: Cirrhosis, Cholelithiasis, Cholecystitis, Choledocholithiasis , Hepatitis A, Hepatitis B, Hepatitis C, Other Renal/: No: Renal Failure, Renal Inusuff, BPH, Cancer, Hematuria, Hemodialysis , Neurogenic Bladder, Renal Calculi, UTI, Other Heme/Onc: No: Anemia, B12 Deficiency, Bleeding Disorder, Cancer, Current Chemotherapy, Current Radiation Therapy, Hemochromatosis, Hypercoaguable State, Myeloproliferative Synd, Sickle Cell Disease, Sickle Cell Trait, Thrombocytopenia, Other Infectious Disease: No: AIDS, C-Diff, Herpes Zoster, HIV, MRSA, STD's, Tuberculosis, VREF, Other Musculoskeletal: No: Bursitis, Chronic low back pain, Hemiparesis, Hemiplegia, Osteoarthritis, Paraplegia, Other Rheumatology: No: Fibromyalgia, Gout, Lupus, Rheumatoid Arthritis, Sarcoidosis, Vasculitis, Other ENT: No: Allergic Rhinitis, Sinusitis, Other Endocrine: No: Rochert's Disease, Gabriela's Disease, Diabetes Insipidus, Diabetes Mellitus (Recent knee surgery), Hyperparathyroidism, Hyperthyroidism, Hypothyroidism, Osteopenia, SIADH, Other - Alcohol/Substance Use Hx Alcohol Use: No - Smoking History Smoking history: Never smoked Have you smoked in the past 12 months: No - Social History Usual Living Arrangement: With Child ADL: Independent History of Recent Travel: No Home Medications - Allergies Allergies/Adverse Reactions: Allergies Allergy/AdvReac Type Severity Reaction Status Date / Time No Known Allergies Allergy Verified 10/13/18 12:43 - Home Medications Home Medications: Ambulatory Orders Albuterol 0.083% Nebulizer Shirley [Ventolin 0.083% Nebulizer Soln -] 1 amp NEB ASDIR PRN 08/04/18 Albuterol Sulfate [Albuterol Sulfate Hfa] 1 puff IH ASDIR PRN 08/04/18 Budesonide/Formeterol Fumarate [SYMBICORT 160/4.5mcg -] 1 inh PO DAILY PRN 08/04 Ezetimibe 10 mg PO DAILY 08/04/18 Losartan Potassium 100 mg PO DAILY 08/04/18 Naloxegol Oxalate [Movantik] 12.5 mg PO DAILY 08/04/18 Oxycodone HCl/Acetaminophen [Endocet 10-325 mg Tablet] 1 each PO TID 08/04/18 Pravastatin Sodium [Pravachol] 40 mg PO DAILY 08/04/18 Aspirin [ASA -] 325 mg PO DAILY@0800 tablet 08/09/18 Naproxen Sodium [Aleve] 220 mg PO ASDIR PRN 08/09/18 Family Disease History - Family Disease History Family History: Unremarkable Review of Systems - Review of Systems Constitutional: reports: No Symptoms Eyes: reports: No Symptoms HENT: reports: No Symptoms Neck: reports: No Symptoms Cardiovascular: reports: Chest Pain, Shortness of Breath Respiratory: reports: Exercise Intolerance, SOB on Exertion Gastrointestinal: reports: No Symptoms Genitourinary: reports: No Symptoms Breasts: reports: No Symptoms Reported Musculoskeletal: reports: No Symptoms Integumentary: reports: No Symptoms Neurological: reports: No Symptoms Endocrine: reports: No Symptoms Hematology/Lymphatic: reports: No Symptoms Psychiatric: reports: No Symptoms - Risk Factors Known Risk Factors: Yes: Hypercholesterolemia, Hypertension Vital Signs: Vital Signs Temperature 98.4 F 10/14/18 06:43 Pulse Rate 77 10/14/18 07:59 Respiratory Rate 20 10/14/18 07:59 Blood Pressure 104/68 10/14/18 07:59 O2 Sat by Pulse Oximetry (%) 96 10/14/18 07:59 Constitutional: Yes: No Distress, Calm Eyes: Yes: Conjunctiva Clear Neck: Yes: Trachea Midline Respiratory: Yes: CTA Bilaterally Gastrointestinal: Yes: Soft, Abdomen, Obese Cardiovascular: Yes: Regular Rate and Rhythm JVD: No Carotid Bruit: No PMI: Non-Displaced Heart Sounds: Yes: S1, S2 Edema: No Peripheral Pulses WNL: Yes Neurological: Yes: Alert, Oriented ...Motor Strength: WNL Psychiatric: Yes: WNL - Other Data Labs, Other Data: CBC, BMP 10/14/18 05:20 10/14/18 05:20 INR, PTT INR 1.12 (0.83-1.09) H 10/13/18 13:22 Troponin, BNP 10/13/18 10/13/18 10/14/18 13:22 16:50 00:27 Troponin I 0.25 H 3.27 H* 2.17 H* 10/14/18 05:20 Troponin I 1.61 H* Troponin, BNP 10/13/18 10/13/18 10/14/18 13:22 16:50 00:27 Troponin I 0.25 H 3.27 H* 2.17 H* 10/14/18 05:20 Troponin I 1.61 H* NSR TWI II, III, avF, V3-V6 new from initial ECG Echo: Pending Imaging - Results Cat Scan: Image Reviewed Assessment/Plan IMP: NSTEMI H/o HTN H/O Hyperlipidemia REC: 1. Hold AM Lovenox 2. Cont ASA 3. Received Plavix Load, high dose statin 4. Echo 5. Plan for tx to [facility] for cath
[2018-10-14] MEDS ORDERED: ASPIRIN COATED 81 MG TABLET.EC PO SCH (10:00)
[2018-10-14] MEDS ORDERED: CLOPIDOGREL BISULFATE 75 MG TABLET (FP) PO SCH (10:00)
[2018-10-14] MEDS ORDERED: BUDESONIDE/FORMETEROL FUMARATE 160/4.5 mcg INHALER IH SCH (10:00)
[2018-10-14] MEDS ORDERED: METOPROLOL TARTRATE 50 MG TABLET (FP) PO SCH (10:00)
[2018-10-14] MEDS ORDERED: LOSARTAN POTASSIUM 50 MG TABLET (FP) PO SCH (10:00)
[2018-10-14] MEDS ORDERED: EZETIMIBE 10 MG TABLET (FP) PO SCH (10:00)
--- NOTE | 2018-10-14 11:06 | ECHO ---
Name: KANIKA MILIAN Exam:Adult Echocardiogram Study Date: 10/14/2018 08:52 AM Age: 72 yrs Reason For Study: ACS Height: 68 in Weight: 265 lb BSA: 2.3 m2 MMode/2D Measurements & Calculations IVSd: 1.0 cm Ao root diam: 2.7 cm LVIDd: 3.1 cm LA dimension: 2.9 cm LVPWd: 1.8 cm ACS: 1.9 cm LVPWs: 2.7 cm EDV(Teich): 37.0 ml LVOT diam: 1.9 cm Doppler Measurements & Calculations MV E max ramiro: 58.2 cm/sec Ao V2 max: 142.5 cm/sec MV A max ramiro: 77.5 cm/sec Ao max P.1 mmHg MV E/A: 0.75 Ao V2 mean: 96.7 cm/sec Ao mean P.2 mmHg Ao V2 VTI: 30.3 cm TV V2 max: 235.3 cm/sec TR max ramiro: 253.8 cm/sec TV max P.1 mmHg TR max P.8 mmHg Med Peak E' Ramiro: 5.6 cm/sec Med E/e': 10.5 Lat Peak E' Ramiro: 5.2 cm/sec Lat E/e': 11.3 Left Ventricle Left ventricular systolic function is moderate to severely reduced. Ejection Fraction = 35%. The hernandez smitral spectral Doppler flow pattern is suggestive of impaired LV relaxation. There is severe lateral wall hypokinesis. There is basal anteroseptal wall moderate hypokinesis. There is mid anteroseptal wall mo derate hypokinesis. There is apical moderate hypokinesis. Right Ventricle The right ventricle is normal in size and function. Atria Normal left and right atrial size and function. Mitral Valve The mitral valve is normal in structure and function. There is no mitral valve stenosis. There is mil d mitral regurgitation. Tricuspid Valve The tricuspid valve is not well visualized, but is grossly normal. There is mild tricuspid regurgitat ion. Right ventricular systolic pressure is normal. Aortic Valve The aortic valve opens well. No hemodynamically significant valvular aortic stenosis. No aortic regur gitation is present. Pulmonic Valve The pulmonic valve is not well seen, but is grossly normal. There is no pulmonic valvular stenosis. T here is no pulmonic valvular regurgitation. Great Vessels The aortic root is normal size. Pericardium/Pleura There is no pericardial effusion. Interpretation Summary Left ventricular systolic function is moderate to severely reduced. Ejection Fraction = 35%. The transmitral spectral Doppler flow pattern is suggestive of impaired LV relaxation. There is severe lateral wall hypokinesis. There is basal anteroseptal wall moderate hypokinesis. There is mid anteroseptal wall moderate hypokinesis. There is apical moderate hypokinesis. The right ventricle is normal in size and function. There is mild mitral regurgitation. There is mild tricuspid regurgitation. Right ventricular systolic pressure is normal. There is no pericardial effusion. MD Nugent *Araceli 10/14/2018 11:05 AM
--- NOTE | 2018-10-14 11:46 | DS ---
Physical Examination Vital Signs: Vital Signs Temperature 98.4 F 10/14/18 06:43 Pulse Rate 75 10/14/18 10:35 Respiratory Rate 20 10/14/18 07:59 Blood Pressure 120/67 10/14/18 10:35 O2 Sat by Pulse Oximetry (%) 96 10/14/18 07:59 Constitutional: Yes: Calm Cardiovascular: Yes: Regular Rate and Rhythm, S1, S2 Gastrointestinal: Yes: Normal Bowel Sounds, Soft Edema: No Neurological: Yes: Alert, Oriented Labs: CBC, BMP 10/14/18 05:20 10/14/18 05:20 Discharge Summary Reason For Visit: CHEST PAIN Current Active Problems NSTEMI (non-ST elevated myocardial infarction) (Acute) Other Procedures: CTA done no PE. ct head. no evidence of acute infarct Hospital Course: CHIEF COMPLAINT: chest pain PCP: Ana HISTORY OF PRESENT ILLNESS: 72yo morbidly obese woman w/ history of CAD, has been having intermittent chest pain for the past two weeks, shortly before presentation to hospital she developed substernal chest pain associated with shortness of breath with left arm numbness. Symptoms improve with rest, worsen with exertion. Stress test showed perfusion defect in July in inferior wall. Patient mentioned her left arm numbness has been present for several months following some trauma to her shoulder. She reported normal cardiac stress test this past july. in ER ekg done diffuse changes seen ER course was notable for: (1) cta- no PE (2) asa (3) plavix echo done moderately to severely reduced ejection fraction hypokinesis of wall plan to transfer to [facility] for cardiac cath Condition: Guarded - Instructions Diet, Activity, Other Instructions: patient needs cath being trasnfer to [facility] Disposition: TRANSFER ACUTE CARE/OTHER HOSP - Home Medications Comprehensive Discharge Medication List: Ambulatory Orders Albuterol 0.083% Nebulizer Shirley [Ventolin 0.083% Nebulizer Soln -] 1 amp NEB ASDIR PRN 08/04/18 Albuterol Sulfate [Albuterol Sulfate Hfa] 1 puff IH ASDIR PRN 08/04/18 Budesonide/Formeterol Fumarate [SYMBICORT 160/4.5mcg -] 1 inh PO DAILY PRN 08/04 Ezetimibe 10 mg PO DAILY 08/04/18 Losartan Potassium 100 mg PO DAILY 08/04/18 Naloxegol Oxalate [Movantik] 12.5 mg PO DAILY 08/04/18 Oxycodone HCl/Acetaminophen [Endocet 10-325 mg Tablet] 1 each PO TID 08/04/18 Pravastatin Sodium [Pravachol] 40 mg PO DAILY 08/04/18 Aspirin [ASA -] 325 mg PO DAILY@0800 tablet 08/09/18 Naproxen Sodium [Aleve] 220 mg PO ASDIR PRN 08/09/18
[2018-10-14 14:44] VITALS: BP 120/79; PULSE 68
--- NOTE | 2018-10-14 15:02 | EKG ---
Test Reason : Blood Pressure : / mmHG Vent. Rate : 094 BPM Atrial Rate : 094 BPM P-R Int : 132 ms QRS Dur : 094 ms QT Int : 386 ms P-R-T Axes : 058 -32 030 degrees QTc Int : 482 ms NORMAL SINUS RHYTHM LEFT AXIS DEVIATION ABNORMAL ECG NO PREVIOUS ECGS AVAILABLE Confirmed by TAYLER LINDA MD ([id number]) on 10/14/2018 3:02:18 PM Referred By: Confirmed By:TAYLER LINDA MD
[2018-10-14] MEDS ORDERED: ATORVASTATIN CA 10 MG TABLET (FP) PO SCH (22:00)
--- NOTE | 2018-10-21 14:47 | EKG ---
Test Reason : Blood Pressure : / mmHG Vent. Rate : 097 BPM Atrial Rate : 097 BPM P-R Int : 126 ms QRS Dur : 086 ms QT Int : 408 ms P-R-T Axes : 059 -48 -87 degrees QTc Int : 518 ms NORMAL SINUS RHYTHM LEFT ANTERIOR FASCICULAR BLOCK T WAVE ABNORMALITY, CONSIDER INFEROLATERAL ISCHEMIA PROLONGED QT ABNORMAL ECG WHEN COMPARED WITH ECG OF 13-OCT-2018 12:34, T WAVE INVERSION NOW EVIDENT IN INFERIOR LEADS T WAVE INVERSION NOW EVIDENT IN ANTEROLATERAL LEADS Confirmed by TAYLER LINDA MD ([id number]) on 10/21/2018 2:46:45 PM Referred By: Confirmed By:TAYLER LINDA MD
== END 2018-10-14 12:30 | disposition short-term general hospital (02) | DRG 281 ==
LOC: JER 12:14 → JERBED 18:46
PROVIDERS: ADMIT Family Medicine; ATTEND Family Medicine
DX: I21.4 Non-ST elevation (NSTEMI) myocardial infarction (principal); Z68.41 Body mass index [BMI] 40.0-44.9, adult; E66.01 Morbid (severe) obesity due to excess calories; I10 Essential (primary) hypertension; J45.909 Unspecified asthma, uncomplicated; E78.5 Hyperlipidemia, unspecified; Z96.651 Presence of right artificial knee joint; Z98.61 Coronary angioplasty status; Z86.73 Personal history of transient ischemic attack (TIA), and cerebral infarction without residual deficits; I25.10 Atherosclerotic heart disease of native coronary artery without angina pectoris
CPT/HCPCS: 36415; 70450-TC; 71045-TC-FY; 71275-TC; 80048; 80053; 80061; 82550; 83036; 83721; 83735; 84484; 85025; 85379; 85610; 93005; 93010; 93306-TC; 99285-25; J7030